=== PATIENT | male | born 1980 | race Caucasian/White ===

== ENCOUNTER 2023-10-09 15:39 | Emergency (ER) | payer MEDICAID ==
[~2023-10-09] VITALS: Ht 180.3 cm; Wt 94.3 kg
[2023-10-09 15:53] VITALS: BP_SYST 119; PULSE 101; RESP 18; TEMP 98.3; O2SAT 96
[2023-10-09 17:30] VITALS: BP_SYST 119; PULSE 101; RESP 18; TEMP 98.3; O2SAT 96
== END 2023-10-09 17:31 | disposition home or self-care (01) ==
LOC: SED 15:39
DX: R76.11 Nonspecific reaction to tuberculin skin test without active tuberculosis (principal)
CPT/HCPCS: 71045; 99283